=== PATIENT | male | born 1975 | race Hispanic/Latino ===

== ENCOUNTER 2017-03-03 00:04 | Inpatient (IN) | payer MEDICAID, SELFPAY ==
[2017-03-03 00:18] VITALS: O2SAT 98; BMI 25.1
--- NOTE | 2017-03-03 00:38 | ED PDOC ---
Arrival/HPI - General Chief Complaint: Substance Abuse Time Seen by Provider: 03/03/17 00:31 Historian: Patient - History of Present Illness Narrative History of Present Illness (Text): 03/03/17 00:34 41 yo M presents to the ER stating that he can't sleep, he states that he has SI , but can specify what those thoughts are. On further questioning, patient is refusing to give a proper history as to why he is in the ER, states that he does not want to go home, as he fears he may harm himself or his kids. Denies any fever, chills, headache, CP, SOB, abdominal pain, N/V/D, has no additional complaints. Past Medical History - Provider Review Nursing Documentation Reviewed: Yes - Cardiac Hx Cardiac Disorders: No Hx Pacemaker: No - Pulmonary Hx Respiratory Disorders: No - Neurological Hx Neurological Disorder: No Hx Paralysis: No - HEENT Hx HEENT Disorder: No - Renal Hx Renal Disorder: No - Endocrine/Metabolic Hx Endocrine Disorders: No - Hematological/Oncological Hx Blood Transfusions: No Hx Blood Transfusion Reaction: No - Integumentary Hx Dermatological Disorder: No - Musculoskeletal/Rheumatological Hx Musculoskeletal Disorders: Yes (bilateral thumb fx as a child) - Gastrointestinal Hx Diverticulitis: Yes (dx one yr ago) - Genitourinary/Gynecological Hx Genitourinary Disorders: No - Psychiatric Hx Emotional Abuse: No Hx Physical Abuse: No Hx Substance Use: Yes - Surgical History Hx Arteriovenous Shunt: No Hx Cardiac Catheterization: No Hx Coronary Artery Bypass Graft: No Hx Coronary Stent: No Hx Open Heart Surgery: No Hx Valve Replacement: No Hx Vascular Surgery: No - Anesthesia Hx Anesthesia Reactions: No Hx Malignant Hyperthermia: No - Suicidal Assessment Feels Threatened In Home Enviroment: No Family/Social History - Physician Review Nursing Documentation Reviewed: Yes Family/Social History: Unknown Family HX Smoking Status: Current Some Days Smoker Hx Alcohol Use: No (pt denies alcohol use, stopped one yr ago) Hx Substance Use: Yes Substance used: marijuana and cocaine Hx Substance Use Treatment: No Allergies/Home Meds Allergies/Adverse Reactions: Allergies Penicillins Allergy (Verified 03/03/17 00:19) RASH Home Medications: Home Meds Medication Instructions Recorded Confirmed No Known Home Med 04/26/12 03/03/17 Review of Systems - Review of Systems Constitutional: Normal. absent: Fatigue, Weight Change, Fevers Respiratory: Normal. absent: SOB, Cough, Sputum Cardiovascular: Normal. absent: Chest Pain, Palpitations, Edema Gastrointestinal: Normal. absent: Abdominal Pain, Stool Changes, Appetite Changes Musculoskeletal: Normal. absent: Arthralgias, Back Pain, Neck Pain Skin: Normal. absent: Rash, Pruritis, Skin Lesions Neurological: Normal. absent: Headache, Dizziness, Focal Weakness Psychiatric: Normal, Suicidal Ideation. absent: Anxiety, Depression Physical Exam - Physical Exam Narrative Physical Exam (Text): 03/03/17 00:37 GENERAL APPEARANCE: Patient is awake, alert, oriented x 3, in no acute distress. SKIN: Warm, dry; (-) cyanosis. HEAD: (-) scalp swelling, (-) scalp tenderness. EYES: (-) conjunctival pallor, (-) scleral icterus, (-) nystagmus. ENMT: Mucous membranes moist. Airway patent: (-) stridor. NECK: (-) tenderness, (-) stiffness, (-) lymphadenopathy. CHEST AND RESPIRATORY: (-) rales, (-) rhonchi, (-) wheezes; breath sounds equal. ABDOMEN: Soft, (-) distention, (-) tenderness, (-) guarding. NEURO AND PSYCH: Mental status as above. Affect: flat. (+) Flight of ideas. flight director: Pupils equal and reactive; EOMI; (-) facial asymmetry; tongue and uvula midline. Strength and DTRs symmetric. Vital Signs Temp Pulse Resp BP Pulse Ox 03/03/17 00:19 98.5 F 100 H 20 142/60 98 03/03/17 00:18 98.5 F 100 H 20 142/60 98 Medical Decision Making ED Course and Treatment: 03/03/17 00:38 41 yo M presents to the ER stating that he can't sleep, he states that he has SI , but can specify what those thoughts are, patient unable to provide a proper history as to why he is in the ER and does not want to go home. Plan: -- Labs -- Urinalysis -- EKG -- CXR -- Drug screen -- Alcohol level -- PES evaluation 03/03/17 01:38 CXR : NAD, as read by KETAN EKG : NSR at 97 bpm, no acute ST changes, as read by PA Labs reviewed : K 3.2. Kcl PO ordered. Patient is medically cleared for PES evaluation. After PES evaluation, patient is requesting for voluntary psych admission. - Lab Interpretations Lab Results: 03/03/17 00:40 03/03/17 00:40 Lab Results 03/03/17 00:58: Urine Color Yellow, Urine Appearance Clear, Urine pH 6.0, Ur Specific [place] <= 1.005, Urine Protein Negative, Urine Glucose (UA) Negative, Urine Ketones Negative, Urine Blood Negative, Urine Nitrate Negative, Urine Bilirubin Negative, Urine Urobilinogen 0.2, Ur Leukocyte Esterase Negative 03/03/17 00:40: Alcohol, Quantitative < 10 03/03/17 00:40: Sodium 138, Potassium 3.2 L, Chloride 97 L, Carbon Dioxide 28, Anion Gap 16, BUN 7, Creatinine 0.8, Est GFR ( Amer) > 60, Est GFR (Non- Af Amer) > 60, Random Glucose 131 H, Calcium 10.1, Total Bilirubin 1.1, AST 18, ALT 26, Alkaline Phosphatase 86, Total Protein 8.4 H, Albumin 4.6, Globulin Pending, Albumin/Globulin Ratio Pending 03/03/17 00:40: WBC 12.5 H, RBC 5.47, Hgb 16.9, Hct 49.2, MCV 89.9, MCH 30.9, MCHC 34.3, RDW 13.1, Plt Count 269, MPV 9.3, Gran % 71.9 H, Lymph % (Auto) 22.0 , [place] % (Auto) 5.4, Eos % (Auto) 0.4 L, Baso % (Auto) 0.3, Gran # 9.00 H, Lymph # 2.8, [place] # 0.7 H, Eos # 0.1, Baso # 0.04 - RAD Interpretation Radiology Orders: 03/03/17 00:31 CHEST PORTABLE [RAD] Stat - Medication Orders Current Medication Orders: Potassium Chloride (Potassium Chloride Oral Soln) 40 meq PO STAT STA Stop: 03/03/17 01:37 - PA / ACCOUNT DEVELOPER / Resident Statement / has reviewed & agrees with the documentation as recorded. Disposition/Present on Arrival - Present on Arrival Any Indicators Present on Arrival: No History of DVT/PE: No History of Uncontrolled Diabetes: No Urinary Catheter: No History of Decub. Ulcer: No History Surgical Site Infection Following: None - Disposition Have Diagnosis and Disposition been Completed?: Yes Diagnosis: Suicidal thoughts Disposition: HOSPITALIZED Disposition Time: 01:37 Patient Plan: Admission Condition: STABLE Forms: [email or web address] (Indonesian)
[2017-03-03 00:55] LABS: BASO # 0.04 K/mm3 (0.0-2.0); BASO % 0.3 % (0.0-3.0); EOS # 0.1 (0.0-0.7); EOS % 0.4 % (1.5-5.0); GRAN % 71.9 % (50.0-68.0); HEMATOCRIT 49.2 % (42.0-52.0); LYMPH # 2.8 (1.2-3.4); MEAN CELL VOLUME 89.9 fl (80.0-105.0); MEAN CORPUSCULAR HEMOGLOBIN 30.9 pg (25.0-35.0); MEAN CORPUSCULAR HGB CONC 34.3 g/dl (31.0-37.0); MEAN PLATELET VOLUME 9.3 fl (7.0-11.0); MONO # 0.7 (0.1-0.6); MONO % 5.4 % (1.0-6.0); RED CELL DISTRIBUTION WIDTH 13.1 % (11.5-14.5); WHITE BLOOD COUNT 12.5 10^3/ul (4.5-11.0)
[2017-03-03 01:04] LABS: ALKALINE PHOSPHATASE 86 U/L (38-126); ALT/SGPT 26 U/L (7-56); AST/SGOT 18 U/L (17-59); BILIRUBIN,TOTAL 1.1 mg/dL (0.2-1.3); BLOOD UREA NITROGEN 7 mg/dL (7-21); CALCIUM 10.1 mg/dL (8.4-10.5); CARBON DIOXIDE 28 mmol/L (21-33); CHLORIDE 97 mmol/L (98-107); GFR AFRICAN-AMERICAN > 60; GLUCOSE,RANDOM 131 mg/dL (70-110); POTASSIUM 3.2 mmol/L (3.6-5.0); SODIUM 138 mmol/L (132-148); TOTAL PROTEIN 8.4 g/dL (5.8-8.3)
[2017-03-03 01:24] LABS: URINE BILIRUBIN NEGATIVE (NEGATIVE); URINE BLOOD NEGATIVE (NEGATIVE); URINE GLUCOSE (UA) NEGATIVE (NEGATIVE); URINE KETONE NEGATIVE (NEGATIVE); URINE LEUKOCYTE ESTERASE NEGATIVE Leu/uL (NEGATIVE); URINE PROTEIN NEGATIVE mg/dL (<30 mg/dL); URINE UROBILINOGEN 0.2 E.U./dL (<1 E.U./dL)
[2017-03-03 01:28] LABS: URINE APPEARANCE CLEAR (CLEAR); URINE COLOR YELLOW (YELLOW)
[2017-03-03] MEDS ORDERED: Potassium Chloride 20 mEq/15 ml LIQ UD PO STA (01:36)
[2017-03-03 01:39] LABS: ALB/GLOB RATIO 1.2 (1.1-1.8)
[2017-03-03] MEDS ORDERED: Magnesium Hydroxide Susp 30 ml UD PO PRN (02:30)
[2017-03-03] MEDS ORDERED: Alum-Mag Hydrox-Simethicone Susp (30 mL) PO PRN (02:30)
--- NOTE | 2017-03-03 05:03 | PCM.BM ---
<Saroj Randhawa - Last Filed: 03/03/17 04:59> Treatment Plan Problems - Problems identified on initial assessmt PSYCHOSIS Date Initiated: 03/03/17 Time Initiated: 03:00 Assessment reference: NA Status: Active SUBSTANCE ABUSE Date Initiated: 03/03/17 Time Initiated: 03:00 Assessment reference: NA Status: Active SUICIDAL IDEATION Date Initiated: 03/03/17 Time Initiated: 03:00 Assessment reference: NA Status: Active Treatment assets and liabiliti Patient Assests: cooperative, motivated, ADL independent, physically healthy, negotiates basic needs Patient Liabilities: financial problems, relationship conflicts (BIZARRE BEHAVIOR SEC. TO SUBSTANCE ABUSE), substance abuse - Milieu Protocol Maintain good personal hygiene: daily Encourage regular showers, every shift Encourage regular showers, every shift Remind patient to perform daily oral care , every shift Assist patient to perform ADL's Maintain personal safety: every shift Educate patient to report safety concerns to staff, every shift Monitor environment for contraband/sharps Medication safety: Monitor for expected outcome, potential side effects: every shift, Assess barriers to learning: every shift, Assess readiness for medication education: every shift Family Contact Family involvement: Family/SO is involved Family contact: Patient agrees to contact Discharge/Continuing Care - Education Needs Education Needs: Patient Medication, Patient Diagnosis/Disease Process, Patient Coping Skills, Patient Placement options, Patient Activities of Daily Living, Patient Uses of Medical Equipment, Patient Health Practices/Safety, Patient Aftercare Safety Plan - Discharge Discharge Criteria: Tolerates medication w/o severe side effects, Free of Suicidal thoughts, Free of paranoid thoughts, Free of agitation, Normal sleep pattern, Ability to care for self <Chely Dickey - Last Filed: 03/03/17 12:25> - Diagnosis (1) Substance-induced psychotic disorder with hallucinations Status: Acute Interventions: 03/03/17 12:26 Psychoeducation/psychotherapy Psychopharmacology/adjustment of medications as needed/ monitoring possible side effects Evaluate pt on daily basis Compliance with medications and follow up appointments Long acting medication if pt is noncompliant with pill form Suicide and homicide risk assessment and prevention, coping strategies, safety plan Relapse prevention Reduction of symptoms Improve functional status Possible assertive community treatment Cognitive behavioral therapy Family involvement Possible social skill training as outpatient (2) Polysubstance dependence including opioid type drug, episodic abuse Status: Acute Interventions: 03/03/17 12:26 Monitoring withdrawal symptoms Medical detoxification Pharmacotherapy for alcohol/benzos/opioid dependence Maintaining sobriety Relapse prevention Possible rehabilitation Motivational interviewing 12-step programs: AA meetings <Ana Finley - Last Filed: 03/07/17 09:26>
[2017-03-03 07:54] LABS: CHOLESTEROL 174 mg/dL (130-200); GLUCOSE,FASTING 98 mg/dL (65-110)
--- NOTE | 2017-03-03 09:19 | CARD ---
APPROVED REPORT EKG Measurement Heart [id number] <Conclusion> Normal sinus rhythm with sinus arrhythmia Mildly prologed QTc
--- NOTE | 2017-03-03 09:54 | RAD ---
HISTORY: psych COMPARISON: Comparison chest 01/26/12 FINDINGS: LUNGS: No active pulmonary disease. PLEURA: No significant pleural effusion identified, no pneumothorax apparent. CARDIOVASCULAR: Normal. OSSEOUS STRUCTURES: No significant abnormalities. VISUALIZED UPPER ABDOMEN: Normal. OTHER FINDINGS: None. IMPRESSION: No active disease.
[2017-03-03] MEDS ORDERED: Potassium Chloride 40 mEq/30 ml LIQ UD PO ONE (10:06)
--- NOTE | 2017-03-03 13:03 | PCM.PSYCH ---
Initial Psychiatric Evaluation - Initial Psychiatric Evaluation Type of Admission: Voluntary Legal Status: Capacity (patient has capacity to sign consent for treatment) Chief Complaint (in patient's own words): "I was taking half of the blue pill every day, I was trying to kick it off, I escobar hear things, was not thinking straight, I lost touch base with reality... " Patient's Reaction to Hospitalization: patient was admitted to psychiatric inpatient unit for evaluation and stabilization of bizarre, disorganized, agitated behavior, possible suicidal ideation. History of Present Illness and Precipitating Events: shortly patient is 41 year old male, not known previous psychiatric history, not known history of suicidal attempts, patient denied history of being admitted to psychiatric inpatient unit, patient was brought in by his mother because patient was agitated, confused, hallucinating, patient also called his brother and said that he wanted to end up his life, due to severeness of his symptoms, agitated, confused, aggressive behavior, patient needs further evaluation and stabilization to the psychiatric inpatient unit. as per report from the remote sensing specialist: PT IS UNKEMPT, AAOX2, IN BIZARRE BEHAVIOR, YELLING OCC.. AND TALKS TO HIMSELF..WHEN INTERVIEWED, HE STARES, THOUGHT BLOCKS , RESPOND DIFFERENTLY BUT RELATED TOPICS..KEEP COMING BACK ON HIS DIVERTICULITIS AND 'WE'RE NOT TOGETHER ANYMORE'.. PT REQUIRED HALDOL AND ATIVAN IM, WAS IN QUIET ROOM OVERNIGHT, DID NOT SLEEP, BUT NO AGGRESSION. patient was seen and examined today with PCP at the treatment team room. Patient presented to be confused, disorganized, difficult to stay focused, poor personal hygiene, fare ADLs. Patient is very poor and unreliable historian, was jumping from one subject to another, patient presented with disorganized thoughts, difficulties to express himself, patient said that he was trying to wean himself off from the painkillers, "I was taking half of the blue pill every day, one adrián by the name Aura told me that they can purchase only 100 pills of Xanax, I asked him why should day by 100 pills?, He told me he cannot sell less than 100 pills.....", patient said 4 days ago he ran short on the Xanax, also he was trying to wean himself off from the Percocet, pt said "i escobar hear things, lost touch with reality man". pt also said he was taking syboxone, smoking marijuana "three blunts a day", pt denied h/o detoxes or rehabs. pt's UDS was also positive for cocaine. pt then said that he has mood swings "I am laughing like everything is funny, then I cry a lot". no meaningful conversation is possible. as per ED report pt was not sleeping for the past 4days, as per mother pt was agitated, has h/o addiction to percocet due to surgery 4years ago, as per mother pt did not have h/o suicidal attempts or admissions to the psych units. Family h/o: denied h/o mental illness in family, as per h/o father has h/o alcohol use disorder, was incarcerated due to DUI with the fatal outcome, recently released from [facility]. Medical h/o: pt has h/o deverticulitis, h/o abdominal surgery after what pt got addicted to pain killers in 2012. Social h/o: pt is father of 3 kids, currently pt is with his significant other, lives with his mother, as per pt never been aggressive or agitated, pt denied any thoughts of harming self or his kids (of note, ED documented pt wanted to harm self or kids, pt adamantly denied it), moreover pt' s kids are under custody of their mother. patient denied being abused Patient denied any access to the guns Patient reported smoking about one pack of cigarettes a day, counseling provided , nicotine patch offered. 03/03/17 00:40 03/03/17 00:40 Lab Results 03/03/17 07:35: Hemoglobin A1c 5.2 03/03/17 07:20: TSH 3rd Generation 1.41 03/03/17 07:20: Fasting Glucose 98, Triglycerides 58, Cholesterol 174, LDL Cholesterol Direct 105, HDL Cholesterol 50 03/03/17 00:58: Urine Opiates Screen Negative, Urine Methadone Screen Negative, Ur Barbiturates Screen Negative, Ur Phencyclidine Scrn Negative, Ur Amphetamines Screen Negative, U Benzodiazepines Scrn Negative, U Oth Cocaine Metabols Positive H, U Cannabinoids Screen Positive H 03/03/17 00:58: Urine Color Yellow, Urine Appearance Clear, Urine pH 6.0, Ur Specific [place] <= 1.005, Urine Protein Negative, Urine Glucose (UA) Negative, Urine Ketones Negative, Urine Blood Negative, Urine Nitrate Negative, Urine Bilirubin Negative, Urine Urobilinogen 0.2, Ur Leukocyte Esterase Negative 03/03/17 00:40: Alcohol, Quantitative < 10 03/03/17 00:40: Sodium 138, Potassium 3.2 L, Chloride 97 L, Carbon Dioxide 28, Anion Gap 15, BUN 7, Creatinine 0.8, Est GFR ( Amer) > 60, Est GFR (Non- Af Amer) > 60, Random Glucose 131 H, Calcium 10.1, Total Bilirubin 1.1, AST 18, ALT 26, Alkaline Phosphatase 86, Total Protein 8.4 H, Albumin 4.6, Globulin 3.8 , Albumin/Globulin Ratio 1.2 03/03/17 00:40: WBC 12.5 H, RBC 5.47, Hgb 16.9, Hct 49.2, MCV 89.9, MCH 30.9, MCHC 34.3, RDW 13.1, Plt Count 269, MPV 9.3, Gran % 71.9 H, Lymph % (Auto) 22.0 , [place] % (Auto) 5.4, Eos % (Auto) 0.4 L, Baso % (Auto) 0.3, Gran # 9.00 H, Lymph # 2.8, [place] # 0.7 H, Eos # 0.1, Baso # 0.04 Vital Signs Temp Pulse Resp BP Pulse Ox 03/03/17 03:46 97.8 F 93 H 20 142/85 03/03/17 02:05 92 H 20 140/65 98 03/03/17 00:19 98.5 F 100 H 20 142/60 98 03/03/17 00:18 98.5 F 100 H 20 142/60 98 mental status examination: Patient is poor and unreliable historian, confused, no eye contact, speech is disorganized, process is circumstantial as well as disorganized, mood described "I F..ed up", affect was flat, thought content: Patient obviously psychotic, reported that he hears something, denied visual hallucinations, patient denied thoughts of harming himself or others, but in the emergency room patient verbalize thoughts of killing himself, inside judgment severely limited, impulses are unpredictable. Impression: Rule out substance-induced psychosis Rule out MDD Polysubstance abuse and dependence r/o benzodiazepined withdrawals Plan: Milieu/structure/supportive therapy Medical consult appreciated, see medical team note for more detailed info consultation for discharge plan and social issues Med management when necessary medication Geodon, Ativan seroquel 100mg po hs for psychosis seroquel 50mg+ativan2 given at am, pt was restless, psychotic, unpredictable ativan scheduled for possible benzos withdrawals Neurontin 300 mg 3 times a day for cravings and mood stabilization MVI daily PRN meds (tramadol, clonidine, loperamide) Family involvement Follow up on labs Will monitor closely evaluation for d/c planning Pt was educated about risk/benefits and alternatives of medications, coping strategies (safety plan, suicide prevention), relapse prevention, importance of follow up with psychiatrist and therapist, stay away from drugs/alcohol/smoking Current Medications: Active Medications Generic Name Dose Route Start Last Admin Trade Name Freq PRN Reason Stop Dose Admin Al Hydrox/Mg Hydrox/Simethicone 30 ml 03/03/17 02:30 Maalox Plus 30 Ml PO DAILY PRN Upset Stomach Hydrocortisone 0 gm 03/03/17 13:00 Cortizone 1% Cream TOP TID BRIANNE Loperamide HCl 2 mg 03/03/17 10:08 Imodium PO QID PRN Diarrhea Lorazepam 2 mg 03/03/17 03:16 Ativan IM Q6H PRN Agitation Protocol Lorazepam 2 mg 03/03/17 13:00 Ativan PO QID BRIANNE Protocol Magnesium Hydroxide 30 ml 03/03/17 02:30 Milk Of Magnesia PO DAILY PRN Constipation Multi-Ingredient Cream 0 ea 03/03/17 13:00 Hydrocerin Cream TOP TID [facility] Multivitamins 1 tab 03/04/17 08:00 Thera Tab PO 0800 BRIANNE Nicotine 1 patch 03/03/17 10:00 03/03/17 10:53 Nicoderm Cq TD 1 patch DAILY BRIANNE Administration Ondansetron HCl 4 mg 03/03/17 10:07 Zofran Odt PO Q8H PRN Nausea/Vomiting Quetiapine Fumarate 100 mg 03/03/17 22:00 Seroquel PO HS BRIANNE Protocol Tramadol HCl 50 mg 03/03/17 10:08 Ultram PO TID PRN pain moderate 7/8 Ziprasidone 20 mg 03/03/17 10:04 Geodon Inj IM Q6H PRN Agitation Protocol Ziprasidone 20 mg 03/03/17 10:04 Geodon Cap PO Q6H PRN agitation/psychosis Protocol Past Psychiatric History - Past Psychiatric History Pertinent Medical Hx (Current Medical&Sleep Prob, Allergies): Allergies Allergy/AdvReac Type Severity Reaction Status Date / Time Penicillins Allergy RASH Verified 03/03/17 00:19 RX: No Known Home Med 04/26/12 DSM 5 DX - Recommended/Plan of Treatment Projected ELOS: 5days Prognosis: fair Discharge Plan and Discharge Criteria: Pt will be not depressed or manic, will be more hopeful, will be not psychotic or anxious, will be not having thoughts of harming self or others, will be tolerating medications well, will not have major side effects, will be able to function, will not pose threat to self or others. - Smoking Cessation Smoking Cessation Initiated: Yes
[2017-03-03] MEDS: Hydrocortisone 1% Cream (30 GM) TOP SCH ×2 (13:13→17:40)
[2017-03-03] MEDS: Hydrocerin(120 gm) TOP SCH ×2 (13:13→19:17)
--- NOTE | 2017-03-03 14:50 | CP.PCM.CON ---
<Tay Pittman Gala - Last Filed: 03/03/17 14:29> History of Present Illness - History of Present Illness History of Present Illness: Medicine consult note for Dr. Israel Perez DO, PGY-4 Reason For Consult: Medicine consult for psychiatry HPI: 41 M with PMHx of substance abuse presented with SI and thoughts of hurting his children. Patient was agitated, speaking unorganized thoughts, and was exhibiting bizarre behavior. Dr. Chely Dickey admitted him to her service. We were consulted to manage patient's medical problems. Patient has a PMHx of Diverticulitis complicated by abscess s/p colectomy, tubular adenoma s/p resection, and psoriasis. At present, patient has no complaints except for b/l LE rash. Pt denies f/ch/cp/sob/n/v/d/dysuria/frequency/urgency/hematuria/hematochezia/ hematemesis PSHx: Colectomy and Polypectomy 2011 PMHx: Psoriasis, Diverticulitis All: PCN SocHx: +Tobacco 1 ppd; +Percocet, Cocaine and Marijuana; Denies EtOH use FamHx: HTN, DM, ?Bowel? CA Meds: Percocet, which he gets off the street. Was Rx'd Percocet once this year ROS: Const'l: pt denies fever, chills, generalized weakness ENT: pt denies dysphagia, otalgia, hearing deficit, rhinorrhea Eyes: pt denies sudden loss of vision, diplopia, blurred vision MSK: pt denies muscle stiffness, joint pain, extremity cramping Cardio: pt denies sob, heart murmur, cp Pulm: pt denies cough, hemoptysis, wheeze GI: pt denies loss of appetite, abdominal pain, constipation, melena, n/v/d : pt denies burning on urination, urinary frequency, hematuria, urinary urgency Neuro: pt denies paresis, paresthesia, dizziness, albarran, numbness, tingling Derm: pt denies skin changes, lesions, nail changes Endo: pt denies intolerance to heat/cold, diaphoresis, night sweats, polydipsia Psych: +see hpi Past Patient History - Past Social History Smoking Status: Current Some Days Smoker - CARDIAC Hx Cardiac Disorders: No Hx Pacemaker: No - PULMONARY Hx Respiratory Disorders: No - NEUROLOGICAL Hx Neurological Disorder: No Hx Paralysis: No - HEENT Hx HEENT Problems: No - RENAL Hx Chronic Kidney Disease: No - ENDOCRINE/METABOLIC Hx Endocrine Disorders: No - HEMATOLOGICAL/ONCOLOGICAL Hx Blood Transfusions: No Hx Blood Transfusion Reaction: No - INTEGUMENTARY Hx Dermatological Problems: No - MUSCULOSKELETAL/RHEUMATOLOGICAL Hx Musculoskeletal Disorders: Yes (bilateral thumb fx as a child) - GASTROINTESTINAL Hx Diverticulitis: Yes (dx one yr ago) - GENITOURINARY/GYNECOLOGICAL Hx Genitourinary Disorders: No - PSYCHIATRIC Hx Depression: No Hx Emotional Abuse: No Hx Physical Abuse: No Hx Substance Use: Yes (cocaine, cannabinoids) - SURGICAL HISTORY Hx Arteriovenous Shunt: No Hx Cardiac Catheterization: No Hx Coronary Artery Bypass Graft: No Hx Coronary Stent: No Hx Open Heart Surgery: No Hx Valve Replacement: No Hx Vascular Surgery: No - ANESTHESIA Hx Anesthesia Reactions: No Hx Malignant Hyperthermia: No Meds Allergies/Adverse Reactions: Allergies Allergy/AdvReac Type Severity Reaction Status Date / Time Penicillins Allergy RASH Verified 03/03/17 00:19 - Medications Medications: Current Medications Al Hydrox/Mg Hydrox/Simethicone (Maalox Plus 30 Ml) 30 ml PO DAILY PRN PRN Reason: Upset Stomach Gabapentin (Neurontin) 300 mg PO TID [facility] PRN Reason: Protocol Hydrocortisone (Cortizone 1% Cream) 0 gm TOP TID [facility] Loperamide HCl (Imodium) 2 mg PO QID PRN PRN Reason: Diarrhea Lorazepam (Ativan) 2 mg IM Q6H PRN; Protocol PRN Reason: Agitation Lorazepam (Ativan) 2 mg PO QID [facility] PRN Reason: Protocol Magnesium Hydroxide (Milk Of Magnesia) 30 ml PO DAILY PRN PRN Reason: Constipation Multi-Ingredient Cream (Hydrocerin Cream) 0 ea TOP TID [facility] Multivitamins (Thera Tab) 1 tab PO 0800 [facility] Nicotine (Nicoderm Cq) 1 patch TD DAILY [facility] Last Admin: 03/03/17 10:53 Dose: 1 patch Ondansetron HCl (Zofran Odt) 4 mg PO Q8H PRN PRN Reason: Nausea/Vomiting Quetiapine Fumarate (Seroquel) 100 mg PO HS [facility] PRN Reason: Protocol Tramadol HCl (Ultram) 50 mg PO TID PRN PRN Reason: pain moderate 7/8 Ziprasidone (Geodon Inj) 20 mg IM Q6H PRN; Protocol PRN Reason: Agitation Ziprasidone (Geodon Cap) 20 mg PO Q6H PRN; Protocol PRN Reason: agitation/psychosis Physical Exam - Additional Findings Additional findings: Phys Exam: VS as below Const'l: +pt unkempt; a&o x 4, nad Head/Neck: neck supple, no jvd, trachea midline, carotid midline, no cervical /head mass Eyes: karina, nonicteric sclera, eom intact ENT: auditory acuity grossly intact, throat not congested, no nasal deformity Cardio: rrr, no m/r/g, no carotid bruit, nml s1, s2 Pulm: no accessory muscle use, equal nml breath sounds bilaterally, ctab Abd: s/nt/nd, nbs x 4 q, no palpable masses Derm: no rashes, no ulcers, no lesions Extr: +psoriatic lesions on b/l LE; no edema, no cyanosis, no calf tenderness , no lesions, no varicosities Neuro: cn II-XII grossly intact, ue and le 5/5 muscle strength bilaterally, no los ue, le bilaterally and core Results - Vital Signs Recent Vital Signs: Last Vital Signs Temp 97.8 F 03/03/17 03:46 Pulse 93 H 03/03/17 03:46 Resp 20 03/03/17 03:46 BP 142/85 03/03/17 03:46 Pulse Ox 98 03/03/17 02:05 - Labs Result Diagrams: 03/03/17 00:40 03/03/17 00:40 Labs: Laboratory Results - last 24 hr 03/03/17 03/03/17 03/03/17 07:20 07:20 07:35 Fasting Glucose 98 Hemoglobin A1c 5.2 Triglycerides 58 Cholesterol 174 LDL Cholesterol Direct 105 HDL Cholesterol 50 TSH 3rd Generation 1.41 Assessment & Plan - Assessment and Plan (Free Text) Assessment: A/P 41 M admitted to Psychiatry for agitation, SI, and HI, with PMHx of diverticulitis s/p colectomy, tubular adenoma s/p polypectomy, and psoriasis. Acute b/l LE rash. Labs show elevated glucose level Leukocytosis, likely 2/2 Cocaine use VS unknown etiology - At this time, vitals are stable, no signs of infection on exam - CXR, Blood Cx, Urine Cx Hyperglycemia - Lipid panel, TSH, A1C T Chol: 174 LDL: 105 HDL: 50 A1C: 5.2 TSH: 1.41 - No further intervention at this time Psoriasis - Hydrocortisone PRN - Hydroserin BRIANNE TID Dispo: - Will continue to monitor the patient's leukocytosis and f/u on CXR, Blood Cx, and Urine Cx before signing off on patient. <Sharif Wood - Last Filed: 03/04/17 16:02> Meds - Medications Medications: Current Medications Al Hydrox/Mg Hydrox/Simethicone (Maalox Plus 30 Ml) 30 ml PO DAILY PRN PRN Reason: Upset Stomach Gabapentin (Neurontin) 300 mg PO TID [facility] PRN Reason: Protocol Last Admin: 03/04/17 12:54 Dose: 300 mg Hydrocortisone (Cortizone 1% Cream) 0 gm TOP TID [facility] Last Admin: 03/04/17 12:59 Dose: 1 cre Loperamide HCl (Imodium) 2 mg PO QID PRN PRN Reason: Diarrhea Lorazepam (Ativan) 2 mg IM Q6H PRN; Protocol PRN Reason: Agitation Lorazepam (Ativan) 2 mg PO TID [facility] PRN Reason: Protocol Magnesium Hydroxide (Milk Of Magnesia) 30 ml PO DAILY PRN PRN Reason: Constipation Multi-Ingredient Cream (Hydrocerin Cream) 0 ea TOP TID [facility] Last Admin: 03/04/17 12:59 Dose: 1 cre Multivitamins (Thera Tab) 1 tab PO 0800 [facility] Last Admin: 03/04/17 09:00 Dose: 1 tab Nicotine (Nicoderm Cq) 1 patch TD DAILY [facility] Last Admin: 03/04/17 10:38 Dose: 1 patch Ondansetron HCl (Zofran Odt) 4 mg PO Q8H PRN PRN Reason: Nausea/Vomiting Quetiapine Fumarate (Seroquel) 100 mg PO HS [facility] PRN Reason: Protocol Last Admin: 03/03/17 21:05 Dose: 100 mg Tramadol HCl (Ultram) 50 mg PO TID PRN PRN Reason: pain moderate 7/8 Ziprasidone (Geodon Inj) 20 mg IM Q6H PRN; Protocol PRN Reason: Agitation Ziprasidone (Geodon Cap) 20 mg PO Q6H PRN; Protocol PRN Reason: agitation/psychosis Results - Vital Signs Recent Vital Signs: Last Vital Signs Temp 98.2 F 03/04/17 06:52 Pulse 102 H 03/04/17 06:52 Resp 20 03/04/17 06:52 BP 115/76 03/04/17 06:52 Pulse Ox 98 03/03/17 02:05 - Labs Result Diagrams: 03/04/17 06:25 03/04/17 06:25 Labs: Laboratory Results - last 24 hr 03/04/17 03/04/17 06:25 06:25 WBC 8.9 D RBC 4.98 Hgb 15.4 Hct 45.2 MCV 90.8 MCH 30.9 MCHC 34.1 RDW 13.2 Plt Count 220 MPV 9.3 Gran % 48.2 L Lymph % (Auto) 45.1 H Cowley % (Auto) 5.2 Eos % (Auto) 0.8 L Baso % (Auto) 0.7 Gran # 4.29 Lymph # 4.0 H Cowley # 0.5 Eos # 0.1 Baso # 0.06 Sodium 139 Potassium 3.7 Chloride 102 Carbon Dioxide 29 Anion Gap 12 BUN 14 Creatinine 0.9 Est GFR ( Amer) > 60 Est GFR (Non-Af Amer) > 60 Random Glucose 83 Calcium 9.3 Total Bilirubin 1.0 AST 17 ALT 27 Alkaline Phosphatase 62 Total Protein 7.2 Albumin 4.0 Globulin 3.2 Albumin/Globulin Ratio 1.2 Attending/Attestation - Attestation I have personally seen and examined this patient.: Yes I have fully participated in the care of the patient.: Yes I have reviewed all pertinent clinical information: Yes Notes (Text): I have seen and examined the patient at bedside. Agree with the above note with the following additions/ exceptions: Briefly this is 41 year old male with history of diverticulitis, doverticular abscess s/p colectomy, psoriasis, opioid dependence, cocaine and marijuana use in the past who came for evaluation of worsning of depression, suicidal ideation and homicidal ideation. Manage as per psych. TSH within normal limits. Most likely his leukcytosis was secondary to dehydration upon admission. Repeat wbc is normal. Blood and urine culture pending. All labs reviewed. Ordered hyrocerin and hydrocortisone prn for psoriasis. Upon discharge patient will follow up with Dr Elizabeth Elkins. Dr Sharif Wood
[2017-03-04 06:56] LABS: BASO # 0.06 K/mm3 (0.0-2.0); BASO % 0.7 % (0.0-3.0); EOS # 0.1 (0.0-0.7); EOS % 0.8 % (1.5-5.0); GRAN # 4.29 (1.4-6.5); GRAN % 48.2 % (50.0-68.0); HEMATOCRIT 45.2 % (42.0-52.0); LYMPH % 45.1 % (22.0-35.0); MEAN CELL VOLUME 90.8 fl (80.0-105.0); MEAN CORPUSCULAR HEMOGLOBIN 30.9 pg (25.0-35.0); MEAN CORPUSCULAR HGB CONC 34.1 g/dl (31.0-37.0); MEAN PLATELET VOLUME 9.3 fl (7.0-11.0); MONO # 0.5 (0.1-0.6); MONO % 5.2 % (1.0-6.0); RED CELL DISTRIBUTION WIDTH 13.2 % (11.5-14.5); WHITE BLOOD COUNT 8.9 10^3/ul (4.5-11.0)
[2017-03-04 06:58] LABS: ALB/GLOB RATIO 1.2 (1.1-1.8); ALKALINE PHOSPHATASE 62 U/L (38-126); ALT/SGPT 27 U/L (7-56); AST/SGOT 17 U/L (17-59); BLOOD UREA NITROGEN 14 mg/dL (7-21); CALCIUM 9.3 mg/dL (8.4-10.5); CARBON DIOXIDE 29 mmol/L (21-33); CHLORIDE 102 mmol/L (98-107); GFR AFRICAN-AMERICAN > 60; GLUCOSE,RANDOM 83 mg/dL (70-110); POTASSIUM 3.7 mmol/L (3.6-5.0); SODIUM 139 mmol/L (132-148); TOTAL PROTEIN 7.2 g/dL (5.8-8.3)
[2017-03-04] MEDS: Multivitamin Therapeutic Tab PO SCH (09:00)
[2017-03-04] MEDS: Hydrocortisone 1% Cream (30 GM) TOP SCH ×3 (09:02→17:56)
[2017-03-04] MEDS: Hydrocerin(120 gm) TOP SCH ×3 (09:03→17:56)
--- NOTE | 2017-03-04 12:41 | RAD ---
HISTORY: Leukocytosis COMPARISON: 03/03/2017 TECHNIQUE: Chest PA and lateral FINDINGS: LUNGS: No active pulmonary disease. PLEURA: No significant pleural effusion identified. No pneumothorax apparent. CARDIOVASCULAR: Normal. OSSEOUS STRUCTURES: No significant abnormalities. VISUALIZED UPPER ABDOMEN: Normal. OTHER FINDINGS: None. IMPRESSION: No active disease. No significant interval change compared to the prior examination(s).
--- NOTE | 2017-03-04 14:35 | PCM.PYCHPN ---
Psychiatric Progress Note - Psychiatric Progress Note Patient seen today, length of contact: 30min Patient Chief Complaint: "I don't know what you are talking about.." Medical Problems: h/o diverticulitis Diagnostic Results: 03/04/17 06:25 03/04/17 06:25 Lab Results 03/04/17 06:25: Sodium 139, Potassium 3.7, Chloride 102, Carbon Dioxide 29, Anion Gap 12, BUN 14, Creatinine 0.9, Est GFR ( Amer) > 60, Est GFR (Non- Af Amer) > 60, Random Glucose 83, Calcium 9.3, Total Bilirubin 1.0, AST 17, ALT 27, Alkaline Phosphatase 62, Total Protein 7.2, Albumin 4.0, Globulin 3.2, Albumin/Globulin Ratio 1.2 03/04/17 06:25: WBC 8.9 D, RBC 4.98, Hgb 15.4, Hct 45.2, MCV 90.8, MCH 30.9, MCHC 34.1, RDW 13.2, Plt Count 220, MPV 9.3, Gran % 48.2 L, Lymph % (Auto) 45.1 H, Saunders % (Auto) 5.2, Eos % (Auto) 0.8 L, Baso % (Auto) 0.7, Gran # 4.29, Lymph # 4.0 H, Saunders # 0.5, Eos # 0.1, Baso # 0.06 03/03/17 07:35: Hemoglobin A1c 5.2 03/03/17 07:20: RPR Nonreactive 03/03/17 07:20: TSH 3rd Generation 1.41 03/03/17 07:20: Fasting Glucose 98, Triglycerides 58, Cholesterol 174, LDL Cholesterol Direct 105, HDL Cholesterol 50 03/03/17 00:58: Urine Opiates Screen Negative, Urine Methadone Screen Negative, Ur Barbiturates Screen Negative, Ur Phencyclidine Scrn Negative, Ur Amphetamines Screen Negative, U Benzodiazepines Scrn Negative, U Oth Cocaine Metabols Positive H, U Cannabinoids Screen Positive H 03/03/17 00:58: Urine Color Yellow, Urine Appearance Clear, Urine pH 6.0, Ur Specific Earling <= 1.005, Urine Protein Negative, Urine Glucose (UA) Negative, Urine Ketones Negative, Urine Blood Negative, Urine Nitrate Negative, Urine Bilirubin Negative, Urine Urobilinogen 0.2, Ur Leukocyte Esterase Negative 03/03/17 00:40: Alcohol, Quantitative < 10 03/03/17 00:40: Sodium 138, Potassium 3.2 L, Chloride 97 L, Carbon Dioxide 28, Anion Gap 15, BUN 7, Creatinine 0.8, Est GFR ( Amer) > 60, Est GFR (Non- Af Amer) > 60, Random Glucose 131 H, Calcium 10.1, Total Bilirubin 1.1, AST 18, ALT 26, Alkaline Phosphatase 86, Total Protein 8.4 H, Albumin 4.6, Globulin 3.8 , Albumin/Globulin Ratio 1.2 03/03/17 00:40: WBC 12.5 H, RBC 5.47, Hgb 16.9, Hct 49.2, MCV 89.9, MCH 30.9, MCHC 34.3, RDW 13.1, Plt Count 269, MPV 9.3, Gran % 71.9 H, Lymph % (Auto) 22.0 , Saunders % (Auto) 5.4, Eos % (Auto) 0.4 L, Baso % (Auto) 0.3, Gran # 9.00 H, Lymph # 2.8, Saunders # 0.7 H, Eos # 0.1, Baso # 0.04 Vital Signs Temp Pulse Resp BP Pulse Ox 03/04/17 06:52 98.2 F 102 H 20 115/76 03/03/17 15:55 107 H 116/67 03/03/17 03:46 97.8 F 93 H 20 142/85 03/03/17 02:05 92 H 20 140/65 98 03/03/17 00:19 98.5 F 100 H 20 142/60 98 03/03/17 00:18 98.5 F 100 H 20 142/60 98 DSM 5 Symptoms Update: shortly patient is 41 year old male, not known previous psychiatric history, not known history of suicidal attempts, patient denied history of being admitted to psychiatric inpatient unit, patient was brought in by his mother because patient was agitated, confused, hallucinating, patient also called his brother and said that he wanted to end up his life, due to severeness of his symptoms, agitated, confused, aggressive behavior, patient needs further evaluation and stabilization to the psychiatric inpatient unit. patient was seen and examined today at the treatment team meeting, pt is sleepy , not a good historian, keep repeating question again and again. when this poem writer asked about the d/c plan and if pt is wiling to go to inpatient rehab, pt said "I don't know what you are talking about". pt denied any withdrawal symptoms. no meaningful conversation is possible. mental status examination: Patient is poor and unreliable historian, confused, no eye contact, speech is disorganized, process is circumstantial as well as disorganized, mood described "I F..ed up", affect was flat, thought content: Patient obviously psychotic, reported that he hears something, denied visual hallucinations, patient denied thoughts of harming himself or others, but in the emergency room patient verbalize thoughts of killing himself, inside judgment severely limited, impulses are unpredictable. Impression: Rule out substance-induced psychosis Rule out MDD Polysubstance abuse and dependence r/o benzodiazepined withdrawals Plan: Milieu/structure/supportive therapy Medical consult appreciated, see medical team note for more detailed info consultation for discharge plan and social issues Med management when necessary medication Geodon, Ativan seroquel 100mg po hs for psychosis ativan 1mg po tid scheduled for possible benzos withdrawals, plan to taper doen Neurontin 300 mg 3 times a day for cravings and mood stabilization MVI daily PRN meds (tramadol, clonidine, loperamide) Family involvement Follow up on labs Will monitor closely SW evaluation for d/c planning Pt was educated about risk/benefits and alternatives of medications, coping strategies (safety plan, suicide prevention), relapse prevention, importance of follow up with psychiatrist and therapist, stay away from drugs/alcohol/smoking Medication Change: Yes Medical Record Reviewed: Yes Consults ordered or reviewed: medical consult appreciated Mental Status Examination - Homicidal Ideation Homicidal Ideation: No Goal/Treatment Plan - Goal/Treatment Plan Need for Continued Stay: Remain at risks for inpatient hospitalization, Severe depression anxiety, Discharge may exacerbated symptoms, Severe functional impairment Estimated Date of D/C: 03/09/17 (will monitor closely)
--- NOTE | 2017-03-04 15:22 | CP.PCM.PN ---
<Tay Pittman - Last Filed: 03/04/17 15:18> Subjective - Date & Time of Evaluation Date of Evaluation: 03/04/17 Time of Evaluation: 15:18 - Subjective Subjective: Medicine progress note for Dr. Israel Perez DO, PGY-9 Pt s/e bedside. Patient denies having any symptoms at this time. No acute events overnight per nursing. Objective - Vital Signs/Intake and Output Vital Signs (last 24 hours): Temp Pulse Resp BP Pulse Ox 98.2 F 102 H 20 115/76 98 03/04/17 06:52 03/04/17 06:52 03/04/17 06:52 03/04/17 06:52 03/03/17 02:05 - Medications Medications: Current Medications Al Hydrox/Mg Hydrox/Simethicone (Maalox Plus 30 Ml) 30 ml PO DAILY PRN PRN Reason: Upset Stomach Gabapentin (Neurontin) 300 mg PO TID [facility] PRN Reason: Protocol Last Admin: 03/04/17 12:54 Dose: 300 mg Hydrocortisone (Cortizone 1% Cream) 0 gm TOP TID [facility] Last Admin: 03/04/17 12:59 Dose: 1 cre Loperamide HCl (Imodium) 2 mg PO QID PRN PRN Reason: Diarrhea Lorazepam (Ativan) 2 mg IM Q6H PRN; Protocol PRN Reason: Agitation Lorazepam (Ativan) 2 mg PO TID [facility] PRN Reason: Protocol Magnesium Hydroxide (Milk Of Magnesia) 30 ml PO DAILY PRN PRN Reason: Constipation Multi-Ingredient Cream (Hydrocerin Cream) 0 ea TOP TID [facility] Last Admin: 03/04/17 12:59 Dose: 1 cre Multivitamins (Thera Tab) 1 tab PO 0800 [facility] Last Admin: 03/04/17 09:00 Dose: 1 tab Nicotine (Nicoderm Cq) 1 patch TD DAILY [facility] Last Admin: 03/04/17 10:38 Dose: 1 patch Ondansetron HCl (Zofran Odt) 4 mg PO Q8H PRN PRN Reason: Nausea/Vomiting Quetiapine Fumarate (Seroquel) 100 mg PO HS [facility] PRN Reason: Protocol Last Admin: 03/03/17 21:05 Dose: 100 mg Tramadol HCl (Ultram) 50 mg PO TID PRN PRN Reason: pain moderate 7/8 Ziprasidone (Geodon Inj) 20 mg IM Q6H PRN; Protocol PRN Reason: Agitation Ziprasidone (Geodon Cap) 20 mg PO Q6H PRN; Protocol PRN Reason: agitation/psychosis - Labs Labs: 03/04/17 06:25 03/04/17 06:25 - Additional Findings Additional findings: Phys Exam: VS as below Const'l: +pt unkempt; a&o x 4, nad Head/Neck: neck supple, no jvd, trachea midline, carotid midline, no cervical /head mass Eyes: karina, nonicteric sclera, eom intact ENT: auditory acuity grossly intact, throat not congested, no nasal deformity Cardio: rrr, no m/r/g, no carotid bruit, nml s1, s2 Pulm: no accessory muscle use, equal nml breath sounds bilaterally, ctab Abd: s/nt/nd, nbs x 4 q, no palpable masses Derm: no rashes, no ulcers, no lesions Extr: +psoriatic lesions on b/l LE; no edema, no cyanosis, no calf tenderness , no lesions, no varicosities Neuro: cn II-XII grossly intact, ue and le 5/5 muscle strength bilaterally, no los ue, le bilaterally and core Assessment and Plan - Assessment and Plan (Free Text) Assessment: A/P 41 M admitted to Psychiatry for agitation, SI, and HI, with PMHx of diverticulitis s/p colectomy, tubular adenoma s/p polypectomy, and psoriasis. Acute b/l LE rash. Labs show elevated glucose level Leukocytosis, likely 2/2 Cocaine use VS unknown etiology - Resolved - At this time, vitals are stable, no signs of infection on exam - CXR, Blood Cx, Urine Cx ordered - f/u * CXR shows NAD Hyperglycemia - Lipid panel, TSH, A1C T Chol: 174 LDL: 105 HDL: 50 A1C: 5.2 TSH: 1.41 - No further intervention at this time Psoriasis - Hydrocortisone PRN - Hydroserin BRIANNE TID Prolonged QTc - Daily EKG - Avoid medications that prolong the QTc Dispo: - Will f/u on Blood Cx and Urine Cx as well as EKG's before signing off on patient. <Wood,Irfana B - Last Filed: 03/04/17 16:04> Objective - Vital Signs/Intake and Output Vital Signs (last 24 hours): Temp Pulse Resp BP Pulse Ox 98.2 F 102 H 20 115/76 98 03/04/17 06:52 03/04/17 06:52 03/04/17 06:52 03/04/17 06:52 03/03/17 02:05 - Medications Medications: Current Medications Al Hydrox/Mg Hydrox/Simethicone (Maalox Plus 30 Ml) 30 ml PO DAILY PRN PRN Reason: Upset Stomach Gabapentin (Neurontin) 300 mg PO TID [facility] PRN Reason: Protocol Last Admin: 03/04/17 12:54 Dose: 300 mg Hydrocortisone (Cortizone 1% Cream) 0 gm TOP TID [facility] Last Admin: 03/04/17 12:59 Dose: 1 cre Loperamide HCl (Imodium) 2 mg PO QID PRN PRN Reason: Diarrhea Lorazepam (Ativan) 2 mg IM Q6H PRN; Protocol PRN Reason: Agitation Lorazepam (Ativan) 2 mg PO TID [facility] PRN Reason: Protocol Magnesium Hydroxide (Milk Of Magnesia) 30 ml PO DAILY PRN PRN Reason: Constipation Multi-Ingredient Cream (Hydrocerin Cream) 0 ea TOP TID [facility] Last Admin: 03/04/17 12:59 Dose: 1 cre Multivitamins (Thera Tab) 1 tab PO 0800 [facility] Last Admin: 03/04/17 09:00 Dose: 1 tab Nicotine (Nicoderm Cq) 1 patch TD DAILY [facility] Last Admin: 03/04/17 10:38 Dose: 1 patch Ondansetron HCl (Zofran Odt) 4 mg PO Q8H PRN PRN Reason: Nausea/Vomiting Quetiapine Fumarate (Seroquel) 100 mg PO HS [facility] PRN Reason: Protocol Last Admin: 03/03/17 21:05 Dose: 100 mg Tramadol HCl (Ultram) 50 mg PO TID PRN PRN Reason: pain moderate 7/8 Ziprasidone (Geodon Inj) 20 mg IM Q6H PRN; Protocol PRN Reason: Agitation Ziprasidone (Geodon Cap) 20 mg PO Q6H PRN; Protocol PRN Reason: agitation/psychosis - Labs Labs: 03/04/17 06:25 03/04/17 06:25 Attending/Attestation - Attestation I have personally seen and examined this patient.: Yes I have fully participated in the care of the patient.: Yes I have reviewed all pertinent clinical information, including history, physical exam and plan: Yes Notes (Text): I have seen and examined the patient at bedside. Agree with the above note with the following additions/ exceptions: Briefly this is 41 year old male with history of diverticulitis, doverticular abscess s/p colectomy, psoriasis, opioid dependence, cocaine and marijuana use in the past who came for evaluation of worsening of depression, suicidal ideation and homicidal ideation. Manage as per psych. TSH within normal limits. Most likely his leukcytosis was secondary to dehydration upon admission. Repeat wbc is normal. Blood and urine culture still pending. All labs reviewed. Continue hyrocerin and hydrocortisone prn for psoriasis. EKG showed prolong QT. Will repeat EKG. In the meantime, please avoid medications causing prolong QT interval. Upon discharge patient will follow up with Dr Elizabeth Elkins. Dr Sharif Wood
[2017-03-05] MEDS ORDERED: Magnesium Hydroxide Susp 30 ml UD PO PRN (06:07)
[2017-03-05] MEDS ORDERED: Alum-Mag Hydrox-Simethicone Susp (30 mL) PO PRN (06:07)
[2017-03-05 07:42] LABS: BASO # 0.05 K/mm3 (0.0-2.0); BASO % 0.6 % (0.0-3.0); EOS # 0.1 (0.0-0.7); EOS % 1.2 % (1.5-5.0); GRAN # 4.6 (1.4-6.5); GRAN % 51.8 % (50.0-68.0); HEMATOCRIT 44.2 % (42.0-52.0); LYMPH # 3.5 (1.2-3.4); LYMPH % 39.9 % (22.0-35.0); MEAN CORPUSCULAR HEMOGLOBIN 30.5 pg (25.0-35.0); MEAN CORPUSCULAR HGB CONC 33.9 g/dl (31.0-37.0); MEAN PLATELET VOLUME 9.4 fl (7.0-11.0); MONO # 0.6 (0.1-0.6); MONO % 6.5 % (1.0-6.0); RED CELL DISTRIBUTION WIDTH 13.1 % (11.5-14.5); WHITE BLOOD COUNT 8.9 10^3/ul (4.5-11.0)
[2017-03-05 08:29] LABS: ALB/GLOB RATIO 1.3 (1.1-1.8); ALKALINE PHOSPHATASE 65 U/L (38-126); ALT/SGPT 18 U/L (7-56); AST/SGOT 18 U/L (17-59); BILIRUBIN,TOTAL 0.9 mg/dL (0.2-1.3); BLOOD UREA NITROGEN 14 mg/dL (7-21); CALCIUM 9.2 mg/dL (8.4-10.5); CARBON DIOXIDE 30 mmol/L (21-33); CHLORIDE 99 mmol/L (98-107); GFR AFRICAN-AMERICAN > 60; GLUCOSE,RANDOM 93 mg/dL (70-110); POTASSIUM 3.4 mmol/L (3.6-5.0); SODIUM 137 mmol/L (132-148); TOTAL PROTEIN 7.2 g/dL (5.8-8.3)
[2017-03-05] MEDS: Multivitamin Therapeutic Tab PO SCH (08:32)
[2017-03-05] MEDS: Hydrocortisone 1% Cream (30 GM) TOP SCH ×3 (08:33→17:25)
[2017-03-05] MEDS: Hydrocerin(120 gm) TOP SCH ×3 (08:33→17:25)
--- NOTE | 2017-03-05 08:55 | PCM.PYCHPN ---
Psychiatric Progress Note - Psychiatric Progress Note Patient seen today, length of contact: 25 min Patient Chief Complaint: "feeling a lot better, my feet are on the ground" Problems Identified/Issues Discussed: I reviewed assessment and recent notes. I met with patient in the dayroom. Grooming is adequate and patient is oriented to month, year and location. Eye contact is good. Patient reports that he is "feeling a lot better, my feet are on the ground". Indicates that he feels hopeful and looking forward to visit with and mom today. Patient denies hallucinations and responses are relevant and consistent. He doesn't appear to be responding to internal stimuli. Patient denies side effects from medications. Denies new discomfort or pain. Slept well last night. Staff notes indicate that patient is brighter and more organized on the unit. Still a little labile. Insight is improving and there were no behavioral issues overnight. Diagnostic Results: Rule out substance-induced psychosis Rule out MDD Polysubstance abuse and dependence r/o benzodiazepined withdrawals Medication Change: No Medical Record Reviewed: Yes Mental Status Examination - Cognitive Function Orientation: Person, Place, Situation Attention: WNL - Mood Mood: Other ("feeling a lot better, my feet are on the ground") - Affect Affect: Constricted - Speech Speech: Appropriate - Formal Thought Process Formal Thought Process: No Impairment (Sensorium is clearing up) - Suicidal Ideation Suicidal Ideation: No - Homicidal Ideation Homicidal Ideation: No Goal/Treatment Plan - Goal/Treatment Plan Need for Continued Stay: Remain at risks for inpatient hospitalization, Severe depression anxiety, Discharge may exacerbated symptoms, Severe functional impairment Progress Toward Problem(s) and Goals/Treatment Plan: * c/w current tx and plan * Ativan 2 mg po tid scheduled for possible benzos withdrawals, plan to taper down * Vitals reviewed and noted below: Selected Entries 03/03/17 03/03/17 03/04/17 03:46 15:55 06:52 Temperature 97.8 F 98.2 F Pulse Rate 93 H 107 H 102 H Respiratory 20 20 Rate Blood Pressure 142/85 116/67 115/76 03/04/17 16:16 Temperature 97.8 F Pulse Rate 76 Respiratory Rate Blood Pressure 110/67 * Recent floor labs noted below: Laboratory Results - last 24 hr 03/05/17 03/05/17 07:00 07:00 WBC 8.9 RBC 4.91 Hgb 15.0 Hct 44.2 MCV 90.0 MCH 30.5 MCHC 33.9 RDW 13.1 Plt Count 223 MPV 9.4 Gran % 51.8 Lymph % (Auto) 39.9 H [place] % (Auto) 6.5 H Eos % (Auto) 1.2 L Baso % (Auto) 0.6 Gran # 4.60 Lymph # 3.5 H [place] # 0.6 Eos # 0.1 Baso # 0.05 Sodium 137 Potassium 3.4 L Chloride 99 Carbon Dioxide 30 Anion Gap 12 BUN 14 Creatinine 0.8 Est GFR ( Amer) > 60 Est GFR (Non-Af Amer) > 60 Random Glucose 93 Calcium 9.2 Total Bilirubin 0.9 AST 18 ALT 18 Alkaline Phosphatase 65 Total Protein 7.2 Albumin 4.1 Globulin 3.1 Albumin/Globulin Ratio 1.3 Estimated Date of D/C: 03/09/17 (will monitor closely)
--- NOTE | 2017-03-05 10:03 | CARD ---
APPROVED REPORT EKG Measurement Heart [id number] HI 130P8 [id number] <Conclusion> Sinus bradycardia C/W ECG 03/03/17: the rate is slower
[2017-03-06 07:08] VITALS: RESP 20
[2017-03-06 08:01] LABS: BASO # 0.05 K/mm3 (0.0-2.0); BASO % 0.6 % (0.0-3.0); EOS # 0.1 (0.0-0.7); EOS % 1.1 % (1.5-5.0); GRAN # 4.69 (1.4-6.5); GRAN % 52.2 % (50.0-68.0); LYMPH # 3.5 (1.2-3.4); LYMPH % 38.9 % (22.0-35.0); MEAN CELL VOLUME 89.2 fl (80.0-105.0); MEAN CORPUSCULAR HEMOGLOBIN 30.2 pg (25.0-35.0); MEAN CORPUSCULAR HGB CONC 33.9 g/dl (31.0-37.0); MEAN PLATELET VOLUME 9.3 fl (7.0-11.0); MONO # 0.7 (0.1-0.6); MONO % 7.2 % (1.0-6.0)
[2017-03-06 08:26] LABS: ALB/GLOB RATIO 1.3 (1.1-1.8); ALKALINE PHOSPHATASE 63 U/L (38-126); ALT/SGPT 26 U/L (7-56); AST/SGOT 17 U/L (17-59); BILIRUBIN,TOTAL 0.9 mg/dL (0.2-1.3); BLOOD UREA NITROGEN 9 mg/dL (7-21); CALCIUM 9.4 mg/dL (8.4-10.5); CARBON DIOXIDE 28 mmol/L (21-33); CHLORIDE 101 mmol/L (98-107); GFR AFRICAN-AMERICAN > 60; GLUCOSE,RANDOM 94 mg/dL (70-110); POTASSIUM 3.6 mmol/L (3.6-5.0); SODIUM 138 mmol/L (132-148); TOTAL PROTEIN 7.4 g/dL (5.8-8.3)
--- NOTE | 2017-03-06 08:49 | PCM.PYCHPN ---
Psychiatric Progress Note - Psychiatric Progress Note Patient seen today, length of contact: 25 min Patient Chief Complaint: "feeling a lot better, I am at 90 percent" Problems Identified/Issues Discussed: I reviewed recent notes and met with patient at bedside. Patient is well groomed and remains oriented to month, year and location. Eye contact is good. Patient continues to reports that he is "feeling a lot better, I am at 90 percent". Indicates that he feels hopeful. Patient denies hallucinations and responses are relevant and consistent. He doesn't appear to be responding to internal stimuli and delusions were not elicited. Patient denies side effects from medications. Denies new discomfort or pain. Slept well last night. Staff notes indicate that patient is brighter and more organized on the unit. During family meeting yesterday, patient and family indicated preference for patient to go to rehab after discharge to rehab. He confirms this preference when discussed this morning. Insight and judgement are improving nicely and there were no behavioral issues over the weekend. Diagnostic Results: Rule out substance-induced psychosis Rule out MDD Polysubstance abuse and dependence r/o benzodiazepined withdrawals Medication Change: No Medical Record Reviewed: Yes Mental Status Examination - Cognitive Function Orientation: Person, Place, Situation Attention: WNL Concentration: WNL Association: WNL Fund of Knowledge: WNL - Mood Mood: Other ("feeling a lot better, I am at 90 percent") - Affect Affect: Constricted (more reactive and related) - Speech Speech: Appropriate - Formal Thought Process Formal Thought Process: No Impairment (Sensorium is clearing up) - Suicidal Ideation Suicidal Ideation: No - Homicidal Ideation Homicidal Ideation: No Goal/Treatment Plan - Goal/Treatment Plan Need for Continued Stay: Remain at risks for inpatient hospitalization, Severe depression anxiety, Discharge may exacerbated symptoms, Severe functional impairment Progress Toward Problem(s) and Goals/Treatment Plan: * c/w current tx and plan * Ativan 2 mg po tid tapered to 2 mg [facility]HS on 03/06/17 with plan to taper down * Vitals reviewed and noted below: Selected Entries 03/04/17 03/05/17 03/05/17 16:16 06:46 15:00 Temperature 97.8 F 97.4 F L Pulse Rate 76 84 106 H Respiratory 18 Rate Blood Pressure 110/67 110/75 117/76 O2 Sat by Pulse 98 Oximetry * Recent weekend labs noted below: Laboratory Results - last 24 hr 03/05/17 03/05/17 07:00 07:00 WBC 8.9 RBC 4.91 Hgb 15.0 Hct 44.2 MCV 90.0 MCH 30.5 MCHC 33.9 RDW 13.1 Plt Count 223 MPV 9.4 Gran % 51.8 Lymph % (Auto) 39.9 H [place] % (Auto) 6.5 H Eos % (Auto) 1.2 L Baso % (Auto) 0.6 Gran # 4.60 Lymph # 3.5 H [place] # 0.6 Eos # 0.1 Baso # 0.05 Sodium 137 Potassium 3.4 L Chloride 99 Carbon Dioxide 30 Anion Gap 12 BUN 14 Creatinine 0.8 Est GFR ( Amer) > 60 Est GFR (Non-Af Amer) > 60 Random Glucose 93 Calcium 9.2 Total Bilirubin 0.9 AST 18 ALT 18 Alkaline Phosphatase 65 Total Protein 7.2 Albumin 4.1 Globulin 3.1 Albumin/Globulin Ratio 1.3 Laboratory Results - last 24 hr 03/06/17 03/06/17 07:40 07:40 WBC 9.0 RBC 4.93 Hgb 14.9 Hct 44.0 MCV 89.2 MCH 30.2 MCHC 33.9 RDW 13.0 Plt Count 233 MPV 9.3 Gran % 52.2 Lymph % (Auto) 38.9 H [place] % (Auto) 7.2 H Eos % (Auto) 1.1 L Baso % (Auto) 0.6 Gran # 4.69 Lymph # 3.5 H [place] # 0.7 H Eos # 0.1 Baso # 0.05 Sodium 138 Potassium 3.6 Chloride 101 Carbon Dioxide 28 Anion Gap 13 BUN 9 Creatinine 0.8 Est GFR ( Amer) > 60 Est GFR (Non-Af Amer) > 60 Random Glucose 94 Calcium 9.4 Total Bilirubin 0.9 AST 17 ALT 26 Alkaline Phosphatase 63 Total Protein 7.4 Albumin 4.2 Globulin 3.2 Albumin/Globulin Ratio 1.3 Estimated Date of D/C: 03/09/17 (will monitor closely)
[2017-03-06] MEDS: Hydrocerin(120 gm) TOP SCH ×3 (09:12→17:49)
[2017-03-06] MEDS: Hydrocortisone 1% Cream (30 GM) TOP SCH ×3 (09:12→17:49)
[2017-03-06] MEDS: Multivitamin Therapeutic Tab PO SCH (09:13)
[2017-03-07] MEDS: Multivitamin Therapeutic Tab PO SCH (09:13)
[2017-03-07] MEDS: Hydrocerin(120 gm) TOP SCH ×3 (09:14→17:50)
[2017-03-07] MEDS: Hydrocortisone 1% Cream (30 GM) TOP SCH ×3 (09:14→17:49)
--- NOTE | 2017-03-07 14:22 | PCM.PYCHPN ---
Psychiatric Progress Note - Psychiatric Progress Note Patient seen today, length of contact: 25 min Patient Chief Complaint: "I am doing great" Problems Identified/Issues Discussed: Patient was seen in treatment team, is requesting discharge. He denies any hallucinations, and indicates his memory is improving. His family is willing to take him back, and he is willing to attend an IOP after discharge. He appears to be stabilizing. Medication Change: No Medical Record Reviewed: Yes Mental Status Examination - Cognitive Function Orientation: Person, Place, Situation Attention: WNL Concentration: WNL Association: WNL Fund of Knowledge: WNL - Mood Mood: Other ("feeling a lot better, I am at 90 percent") - Affect Affect: Constricted (more reactive and related) - Speech Speech: Appropriate - Formal Thought Process Formal Thought Process: No Impairment (Sensorium is clearing up) - Suicidal Ideation Suicidal Ideation: No - Homicidal Ideation Homicidal Ideation: No Goal/Treatment Plan - Goal/Treatment Plan Need for Continued Stay: Remain at risks for inpatient hospitalization, Severe depression anxiety, Discharge may exacerbated symptoms, Severe functional impairment Estimated Date of D/C: 03/09/17 (will monitor closely)
[2017-03-08 07:22] VITALS: BP 126/81; PULSE 67; TEMP 97.6
[2017-03-08] MEDS: Hydrocerin(120 gm) TOP SCH (09:00)
[2017-03-08] MEDS: Hydrocortisone 1% Cream (30 GM) TOP SCH (09:00)
[2017-03-08] MEDS: Multivitamin Therapeutic Tab PO SCH (09:00)
--- NOTE | 2017-03-08 15:59 | PCM.PYCHDC ---
Mental Status Examination - Mental Status Examination Orientation: Person, Place, Situation, Time Memory: Intact Mood: Neutral Affect: Broad (and mood congruent) Speech: Appropriate Attention: WNL Concentration: WNL Association: WNL Fund of Knowledge: WNL Formal Thought Process: No Impairment Description of patient's judgement and insight: Pt has improved insight into mental and medical illness, pt was compliant with medications and unit rules and regulations, pt was going to groups, was calm, cooperative, socially appropriate, no behavioral incidents, no agitation, no aggression. Psychotic Thoughts and Behaviors: Pt denied v/a/t hallucinations, denied paranoid ideations, pt does not appear to be psychotic, and thought process is goal directed. Suicidal Ideation: No Current Homicidal Ideation?: No Plan: pt adamantly denied thoughts of harming self or others denied intent or plan. Discharge Summary - Discharge Note Reason for Hospitalization: patient was admitted to psychiatric inpatient unit for evaluation and stabilization of bizarre, disorganized, agitated behavior, possible suicidal ideation. Psychiatric History (includes Medical, Family, Personal Hx): substance abuse and dependence Laboratory Data: 03/06/17 07:40 03/06/17 07:40 Lab Results 03/06/17 07:40: Sodium 138, Potassium 3.6, Chloride 101, Carbon Dioxide 28, Anion Gap 13, BUN 9, Creatinine 0.8, Est GFR ( Amer) > 60, Est GFR (Non- Af Amer) > 60, Random Glucose 94, Calcium 9.4, Total Bilirubin 0.9, AST 17, ALT 26, Alkaline Phosphatase 63, Total Protein 7.4, Albumin 4.2, Globulin 3.2, Albumin/Globulin Ratio 1.3 03/06/17 07:40: WBC 9.0, RBC 4.93, Hgb 14.9, Hct 44.0, MCV 89.2, MCH 30.2, MCHC 33.9, RDW 13.0, Plt Count 233, MPV 9.3, Gran % 52.2, Lymph % (Auto) 38.9 H, [place] % (Auto) 7.2 H, Eos % (Auto) 1.1 L, Baso % (Auto) 0.6, Gran # 4.69, Lymph # 3.5 H, Branch # 0.7 H, Eos # 0.1, Baso # 0.05 03/05/17 07:00: Sodium 137, Potassium 3.4 L, Chloride 99, Carbon Dioxide 30, Anion Gap 12, BUN 14, Creatinine 0.8, Est GFR ( Amer) > 60, Est GFR (Non- Af Amer) > 60, Random Glucose 93, Calcium 9.2, Total Bilirubin 0.9, AST 18, ALT 18, Alkaline Phosphatase 65, Total Protein 7.2, Albumin 4.1, Globulin 3.1, Albumin/Globulin Ratio 1.3 03/05/17 07:00: WBC 8.9, RBC 4.91, Hgb 15.0, Hct 44.2, MCV 90.0, MCH 30.5, MCHC 33.9, RDW 13.1, Plt Count 223, MPV 9.4, Gran % 51.8, Lymph % (Auto) 39.9 H, [place] % (Auto) 6.5 H, Eos % (Auto) 1.2 L, Baso % (Auto) 0.6, Gran # 4.60, Lymph # 3.5 H, Branch # 0.6, Eos # 0.1, Baso # 0.05 03/04/17 06:25: Sodium 139, Potassium 3.7, Chloride 102, Carbon Dioxide 29, Anion Gap 12, BUN 14, Creatinine 0.9, Est GFR ( Amer) > 60, Est GFR (Non- Af Amer) > 60, Random Glucose 83, Calcium 9.3, Total Bilirubin 1.0, AST 17, ALT 27, Alkaline Phosphatase 62, Total Protein 7.2, Albumin 4.0, Globulin 3.2, Albumin/Globulin Ratio 1.2 03/04/17 06:25: WBC 8.9 D, RBC 4.98, Hgb 15.4, Hct 45.2, MCV 90.8, MCH 30.9, MCHC 34.1, RDW 13.2, Plt Count 220, MPV 9.3, Gran % 48.2 L, Lymph % (Auto) 45.1 H, [place] % (Auto) 5.2, Eos % (Auto) 0.8 L, Baso % (Auto) 0.7, Gran # 4.29, Lymph # 4.0 H, [place] # 0.5, Eos # 0.1, Baso # 0.06 03/03/17 07:35: Hemoglobin A1c 5.2 03/03/17 07:20: RPR Nonreactive 03/03/17 07:20: TSH 3rd Generation 1.41 03/03/17 07:20: Fasting Glucose 98, Triglycerides 58, Cholesterol 174, LDL Cholesterol Direct 105, HDL Cholesterol 50 03/03/17 00:58: Urine Opiates Screen Negative, Urine Methadone Screen Negative, Ur Barbiturates Screen Negative, Ur Phencyclidine Scrn Negative, Ur Amphetamines Screen Negative, U Benzodiazepines Scrn Negative, U Oth Cocaine Metabols Positive H, U Cannabinoids Screen Positive H 03/03/17 00:58: Urine Color Yellow, Urine Appearance Clear, Urine pH 6.0, Ur Specific [place] <= 1.005, Urine Protein Negative, Urine Glucose (UA) Negative, Urine Ketones Negative, Urine Blood Negative, Urine Nitrate Negative, Urine Bilirubin Negative, Urine Urobilinogen 0.2, Ur Leukocyte Esterase Negative 03/03/17 00:40: Alcohol, Quantitative < 10 03/03/17 00:40: Sodium 138, Potassium 3.2 L, Chloride 97 L, Carbon Dioxide 28, Anion Gap 15, BUN 7, Creatinine 0.8, Est GFR ( Amer) > 60, Est GFR (Non- Af Amer) > 60, Random Glucose 131 H, Calcium 10.1, Total Bilirubin 1.1, AST 18, ALT 26, Alkaline Phosphatase 86, Total Protein 8.4 H, Albumin 4.6, Globulin 3.8 , Albumin/Globulin Ratio 1.2 03/03/17 00:40: WBC 12.5 H, RBC 5.47, Hgb 16.9, Hct 49.2, MCV 89.9, MCH 30.9, MCHC 34.3, RDW 13.1, Plt Count 269, MPV 9.3, Gran % 71.9 H, Lymph % (Auto) 22.0 , Branch % (Auto) 5.4, Eos % (Auto) 0.4 L, Baso % (Auto) 0.3, Gran # 9.00 H, Lymph # 2.8, Branch # 0.7 H, Eos # 0.1, Baso # 0.04 Vital Signs Temp Pulse Resp BP Pulse Ox 03/08/17 07:22 97.6 F 67 20 126/81 03/07/17 15:00 84 106/70 03/07/17 07:09 97.7 F 69 20 121/75 03/06/17 16:00 78 114/82 03/06/17 07:07 97.6 F 70 20 124/83 03/05/17 15:00 106 H 117/76 03/05/17 06:46 97.4 F L 84 18 110/75 98 03/04/17 16:16 97.8 F 76 110/67 03/04/17 06:52 98.2 F 102 H 20 115/76 03/03/17 15:55 107 H 116/67 03/03/17 03:46 97.8 F 93 H 20 142/85 03/03/17 02:05 92 H 20 140/65 98 03/03/17 00:19 98.5 F 100 H 20 142/60 98 03/03/17 00:18 98.5 F 100 H 20 142/60 98 Consultations:: List each consultation separately and include: 1. Reason for request. 2. Findings. 3. Follow-up Consultations: medical consult appreciated see notes for more detailed information Summary of Hospital Course include:: 1. Description of specific treatment plan utilized for patients during their course of treatmen. 2. Summarize the time- course for resolution of acute symptoms and/or regressed behaviors. 3. Describe issues identified and worked on during hospitalization. 4. Describe medication utilized. 5. Describe medical problems identified and treated. 6. Reassessment of suicide risk Summary of Hospital Course: shortly patient is 41 year old male, not known previous psychiatric history, not known history of suicidal attempts, patient denied history of being admitted to psychiatric inpatient unit, patient was brought in by his mother because patient was agitated, confused, hallucinating, patient also called his brother and said that he wanted to end up his life, due to severeness of his symptoms, agitated, confused, aggressive behavior, patient needs further evaluation and stabilization to the psychiatric inpatient unit. during initial nursing assessment: PT IS UNKEMPT, AAOX2, IN BIZARRE BEHAVIOR, YELLING OCC.. AND TALKS TO HIMSELF..WHEN INTERVIEWED, HE STARES, THOUGHT BLOCKS , RESPOND DIFFERENTLY BUT RELATED TOPICS..KEEP COMING BACK ON HIS DIVERTICULITIS AND 'WE'RE NOT TOGETHER ANYMORE'.. PT REQUIRED HALDOL AND ATIVAN IM, WAS IN QUIET ROOM OVERNIGHT, DID NOT SLEEP, BUT NO AGGRESSION. during this travel writer initial assessment patient presented to be confused, disorganized, difficult to stay focused, poor personal hygiene, fare ADLs. Patient is very poor and unreliable historian, was jumping from one subject to another, patient presented with disorganized thoughts, difficulties to express himself, patient said that he was trying to wean himself off from the painkillers, "I was taking half of the blue pill every day, one adrián by the name Aura told me that they can purchase only 100 pills of Xanax, I asked him why should day by 100 pills?, He told me he cannot sell less than 100 pills.....", patient said 4 days ago he ran short on the Xanax, also he was trying to wean himself off from the Percocet, pt said "i escobar hear things, lost touch with reality man". pt also said he was taking syboxone, smoking marijuana "three blunts a day", pt denied h/o detoxes or rehabs. pt's UDS was also positive for cocaine. pt then said that he has mood swings "I am laughing like everything is funny, then I cry a lot". no meaningful conversation is possible. as per ED report pt was not sleeping for the past 4days, as per mother pt was agitated, has h/o addiction to percocet due to surgery 4years ago, as per mother pt did not have h/o suicidal attempts or admissions to the psych units. Family h/o: denied h/o mental illness in family, as per h/o father has h/o alcohol use disorder, was incarcerated due to DUI with the fatal outcome, recently released from penitentiary. Medical h/o: pt has h/o deverticulitis, h/o abdominal surgery after what pt got addicted to pain killers in 2012. Social h/o: pt is father of 3 kids, currently pt is with his significant other, lives with his mother, as per pt never been aggressive or agitated, pt denied any thoughts of harming self or his kids (of note, ED documented pt wanted to harm self or kids, pt adamantly denied it), moreover pt' s kids are under custody of their mother. patient denied being abused Patient denied any access to the guns Patient reported smoking about one pack of cigarettes a day, counseling provided , nicotine patch offered. 03/03/17 00:40 03/03/17 00:40 Lab Results 03/03/17 07:35: Hemoglobin A1c 5.2 03/03/17 07:20: TSH 3rd Generation 1.41 03/03/17 07:20: Fasting Glucose 98, Triglycerides 58, Cholesterol 174, LDL Cholesterol Direct 105, HDL Cholesterol 50 03/03/17 00:58: Urine Opiates Screen Negative, Urine Methadone Screen Negative, Ur Barbiturates Screen Negative, Ur Phencyclidine Scrn Negative, Ur Amphetamines Screen Negative, U Benzodiazepines Scrn Negative, U Oth Cocaine Metabols Positive H, U Cannabinoids Screen Positive H 03/03/17 00:58: Urine Color Yellow, Urine Appearance Clear, Urine pH 6.0, Ur Specific [place] <= 1.005, Urine Protein Negative, Urine Glucose (UA) Negative, Urine Ketones Negative, Urine Blood Negative, Urine Nitrate Negative, Urine Bilirubin Negative, Urine Urobilinogen 0.2, Ur Leukocyte Esterase Negative 03/03/17 00:40: Alcohol, Quantitative < 10 03/03/17 00:40: Sodium 138, Potassium 3.2 L, Chloride 97 L, Carbon Dioxide 28, Anion Gap 15, BUN 7, Creatinine 0.8, Est GFR ( Amer) > 60, Est GFR (Non- Af Amer) > 60, Random Glucose 131 H, Calcium 10.1, Total Bilirubin 1.1, AST 18, ALT 26, Alkaline Phosphatase 86, Total Protein 8.4 H, Albumin 4.6, Globulin 3.8 , Albumin/Globulin Ratio 1.2 03/03/17 00:40: WBC 12.5 H, RBC 5.47, Hgb 16.9, Hct 49.2, MCV 89.9, MCH 30.9, MCHC 34.3, RDW 13.1, Plt Count 269, MPV 9.3, Gran % 71.9 H, Lymph % (Auto) 22.0 , Branch % (Auto) 5.4, Eos % (Auto) 0.4 L, Baso % (Auto) 0.3, Gran # 9.00 H, Lymph # 2.8, Branch # 0.7 H, Eos # 0.1, Baso # 0.04 Vital Signs Temp Pulse Resp BP Pulse Ox 03/03/17 03:46 97.8 F 93 H 20 142/85 03/03/17 02:05 92 H 20 140/65 98 03/03/17 00:19 98.5 F 100 H 20 142/60 98 03/03/17 00:18 98.5 F 100 H 20 142/60 98 pt was stabilized on the following medications: seroquel 100mg po hs for psychosis pt was on tapering dose of ativan multivitamines neurontin 300mg po tid for mood stabilizaiton patient tolerated medications well, no side effects observed or reported, aims 0 , no EPS. easement worker contacted patient , patient reported that patient is doing much better now, willing to accept pt back. patient does not have any agitation or aggression, patient requested to be discharged from the hospital today. Over the course of this hospitalization pt was attending groups, pt also had medication management, had therapeutic milieu. Overall pt improved significantly, pt's affect became brighter, pt was less depressed, has realistic future oriented plans, pt also does not appear to be psychotic, or anxious, pt was socially appropriate, no behavioral issues, pts insight improved as well and soon pt deemed to be ready for discharge. At the time of the discharge pt denied been depressed, denied thoughts of harming self or others, denied psychotic symptoms, and pt does not appeared to be psychotic, denied been anxious, pt is not in imminent danger to self or others, will be following up at [facility] program, information about follow up appointment, time and address provided to the pt, it is patient responsibility to follow up with outpatient clinic, PMD as well as specialists (see note for more detailed information). In case pt will need to obtain results of studies pending at discharge pt was provided with contact information of Psychiatric Inpatient unit [phone] as well as Medical Record Department [phone]. Nicotine patch was offered Naltrexone treatment is not indicated now, pt needs to be off from pain killers for at least two weeks Counseling about smoking and alcohol cessation provided AA meetings as well as smoking cessation treatment program information was provided by the pt was provided with prescriptions for all of medications (please see medication reconciliation form) Pt was educated about safety plan in case of worsening of symptoms or in case of suicidal or homicidal ideation call 911 or go to the nearest ER, also was educated to take meds as prescribed and stay away from drugs, pt verbalized understanding. - Diagnosis (1) Substance-induced psychotic disorder with hallucinations Current Visit: Yes Status: Acute Priority: High (2) Polysubstance dependence including opioid type drug, episodic abuse Current Visit: Yes Status: Chronic Priority: Medium - Final Diagnosis (DSM 5) Condition upon Discharge: STABLE Disposition: HOME/ ROUTINE Prescriptions/Medication Reconciliation: Gabapentin [Neurontin] 300 mg PO TID #45 cap LORazepam [Ativan] 1 mg PO TID #12 tab Multivitamin Therapeutic Tab [Thera Tab] 1 tab PO 0800 #14 tab Nicotine 21 mg/24 hr [Nicoderm Cq] 1 patch TD DAILY #14 patch QUEtiapine [Seroquel] 100 mg PO HS #14 tab - Smoking Cessation Smoking Cessation Medication prescribed: Yes - Antipsychotic Medications Pt discharged on 2 or more routine antipsychotic medications: No
== END 2017-03-08 16:20 | disposition home or self-care (01) | DRG 744 ==
LOC: ED 00:04 → ERH 01:42 → PSYC 02:41
PROVIDERS: ADMIT Psychiatry & Neurology Psychiatry; ATTEND Psychiatry & Neurology Psychiatry
DX: F19.959 Other psychoactive substance use, unspecified with psychoactive substance-induced psychotic disorder, unspecified (principal); E86.0 Dehydration; F19.20 Other psychoactive substance dependence, uncomplicated; F11.20 Opioid dependence, uncomplicated; I45.81 Long QT syndrome; R45.851 Suicidal ideations; D72.829 Elevated white blood cell count, unspecified; F12.90 Cannabis use, unspecified, uncomplicated; F17.210 Nicotine dependence, cigarettes, uncomplicated; K57.92 Diverticulitis of intestine, part unspecified, without perforation or abscess without bleeding; L40.9 Psoriasis, unspecified; R45.850 Homicidal ideations; Z90.49 Acquired absence of other specified parts of digestive tract; Z87.81 Personal history of (healed) traumatic fracture; Z88.0 Allergy status to penicillin; R73.9 Hyperglycemia, unspecified